=== PATIENT | female | born 1945 | race Caucasian/White ===

== ENCOUNTER → 2016-07-10 | Day surgery (SDC) | payer OTHER ==
[~2016-07-10] VITALS: Ht 157.5 cm; Wt 68.2 kg
[~2016-07-10] MED LIST: *morphine SULFATE 8 MG/ML PERIprocedure ONLY ONE; ASPI1TAB69 PO; ASPIRIN EC 81 MG TABEC PO SCH; ATROPINE SULFATE 1 MG/ML VIAL IV PUSH PRN; BACITRACIN TOP OINT 15 GM TUBE ONE; BUPIVACAINE/EPINEPHRINE 0.5% PF 30 ML VIAL INFIL ONE; CHLORHEXIDINE GLUCONATE 2 % 1 PACK (2 CLOTHS) TOPICAL PRN; CLOPIDOGREL 300 MG TAB PO ONE; DO NOT ADM ANY ANTICOAGULANT DRUGS PRN; ENALAPRILAT 1.25 MG/ML VIAL IV PUSH PRN; FAMOTIDINE 20 MG/2 ML VIAL ONE; FLUT1INH INH; HEPARIN SODIUM - IV 10,000 UNITS/10 ML VIAL ONE; HEPARIN SODIUM - SQ 10,000 UNITS/ML VIAL ONE; INSULIN HUMAN REGULAR 1,000 UNITS/10 ML VIAL SQ PRN; IOHEXOL 300 MG/ML 50 ML BTL (for RAD DIAG) OTHER ONE; KETAMINE HCL 500 MG/5 ML VIAL ONE; LABETALOL HCL 100 MG/20 ML VIAL IV PUSH PRN; LACTATED RINGER'S 1000 ML IV PRN; LIDOCAINE HCL 1% 20 ML VIAL INFIL PRN; LORazepam 2 MG/ML VIAL IV PUSH PRN; METOCLOPRAMIDE HCL 10 MG/2 ML VIAL IV PUSH PRN; METOPROLOL TARTRATE 25 MG TAB PO PRN; MIDAZOLAM HCL 2 MG/2 ML VIAL ONE; NITROPRUSSIDE INJ 50 MG in DEXTROSE 5% IN WATER INJ 250 ML IV SCH; ONDANSETRON HCL 4 MG/2 ML VIAL IV PUSH ONE; ONDANSETRON HCL 4 MG/2 ML VIAL IV PUSH PRN; PHENYLEPHRINE HCL 10 MG/ML VIAL IV ONE; POTASSIUM CHLORIDE 20 MEQ CONTROLLED RELEASE TAB PO SCH; POVIDONE IODINE 5% (ANTISEPSIS KIT) 4 APPLICATIONS EACH NARE PRN; PROPOFOL 200 MG/20 ML AMP IV ONE; PROTAMINE SULFATE 50 MG/5 ML VIAL ONE; SODIUM CHLOR 0.9% 1000 ML INJ 1,000 ML IV SCH; SODIUM CHLOR 0.9% 250 ML INJ 250 ML IV PRN; SODIUM CHLORID 0.9% 500 ML INJ 500 ML IV ONE; SODIUM CHLORID 0.9% 500 ML IV PRN; SODIUM CHLORIDE 0.9% FLUSH 10 ML FLUSH IV FLUSH PRN; SODIUM CHLORIDE 0.9% INJ 100 ML ONE; ceFAZolin 1,000 MG/NS 100 ML IV SCH; ceFAZolin INJ 1,000 MG VIAL ONE; cloNIDine HCL 0.1 MG TAB PO PRN; fentaNYL CITRATE 250 MCG/5 ML AMP ONE
[2016-07-10 09:00] VITALS: BP 142/88; PULSE 86; RESP 20; TEMP 97.7; O2SAT 98
[2016-07-10 09:28] LABS: AUTOMATED NEUTROPHIL # 3.5 TH/MM3 (1.8-7.7); BASOPHIL # 0.1 TH/MM3 (0-0.2); BASOPHIL % 1.1 % (0.0-2.0); EOSINOPHIL % 0.8 % (0.0-4.0); HEMATOCRIT 41.2 % (35.0-46.0); HEMO FLAGS DIFF FINAL; LYMPH % 30.6 % (9.0-44.0); LYMPHOCYTE # 1.8 TH/MM3 (1.0-4.8); MEAN CELL VOLUME 92.4 FL (80.0-100.0); MEAN CORPUSCULAR HEMOGLOBIN 31.8 PG (27.0-34.0); MEAN CORPUSCULAR HGB CONC 34.5 % (32.0-36.0); MONO % 7.5 % (0.0-8.0); PLATELET COUNT 335 TH/MM3 (150-450); RED BLOOD COUNT 4.46 MIL/MM3 (4.00-5.30); RED CELL DISTRIBUTION WIDTH 13.5 % (11.6-17.2); WHITE BLOOD COUNT 5.8 TH/MM3 (4.0-11.0)
[2016-07-10 09:39] LABS: INTERNATIONAL NORMALIZED RATIO 0.9 RATIO; PROTHROMBIN TIME - PATIENT 10.2 SEC (9.8-11.6)
[2016-07-10 09:42] LABS: BICARBONATE 25.5 MEQ/L (21.0-32.0)
--- NOTE | 2016-07-10 11:30 | EKG ---
Date Performed: 07/10/2016 Time Performed: 08:39:08 PTAGE: 71 years EKG: Sinus rhythm LEFT ANTERIOR FASCICULAR BLOCK MODERATE ST DEPRESSION ABNORMAL ECG PREVIOUS TRACING : 02/02/1997 16.03 DOCTOR: Derrell Powers Interpretating Date/Time 07/10/2016 11:29:38
[2016-07-10 15:00] VITALS: BP 131/69; PULSE 76; RESP 16; TEMP 97.8; O2SAT 96
--- NOTE | 2016-07-11 07:04 | MP ---
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 PROCEDURE Left external iliac percutaneous balloon angioplasty and stent placement. SURGEON Vlad Vilchis MD ASSISTANT MANAGER/EMBALMER VLAD Cope ANESTHESIA Local MAC. DESCRIPTION OF THE OPERATIVE PROCEDURE With the patient in the supine position and under IV sedation, the lower abdomen, both groins and thighs were prepped with Betadine and draped in a sterile fashion. One gram of Ancef was administered intravenously and following a protocol time-out, the skin and subcutaneous tissue surrounding the proposed left common femoral access site preemptively infiltrated with 0.5% Marcaine with epinephrine. Utilizing ultrasound guidance, an 18-gauge needle was inserted into the left mid-common femoral lumen. A J-wire was navigated under fluoroscopic guidance into the left iliac artery followed by deployment of a 5-[place]mani hemostatic sheath. Retrograde, diluted contrast injected through the sheath side-arm in conjunction with digital C-arm fluoroscopic imaging confirmed a focal, high-grade stenosis within the mid-left external iliac artery. The distal aorta, both common and internal iliac arteries were widely patent. The right external iliac artery was also widely patent. The patient was systemically heparinized with 5000 units. The 5-[place]mani sheath was exchanged for a 6-[place] Brite-Tip sheath. Utilizing roadmapping guidance, the focal external iliac stenosis was balloon angioplastied with a 4 x 40-mm balloon followed by deployment of a 6 x 30-mm balloon expandable stent. Completion angiogram revealed no residual stenosis and unrestricted flow into the left common femoral artery. Selective angiography of the left lower extremity confirmed a widely patent left common femoral, profunda, SFA, popliteal with two-vessel runoff to the left foot. There were no operative complications. At the conclusion of the procedure the left posterior tibial pulse was easily palpable/robust. The patient returned to Recovery in stable condition having tolerated the procedure well. MD RUTH Granger/JENNIFER /5:32 PM /6:51 AM
== END | disposition home or self-care (01) ==
LOC: HSDC 08:10
PROVIDERS: ATTEND Surgery Vascular Surgery
DX: I70.212 Atherosclerosis of native arteries of extremities with intermittent claudication, left leg (principal); R94.31 Abnormal electrocardiogram [ECG] [EKG]
CPT/HCPCS: 00880; 37221; 75710; 76937; 80048; 85025; 85347; 85610; 85730; 86850; 86900; 86901; 93005; C1725; C1769; C1876; J0690; J1644; J2250; J2270; J2370; J2405; J2720; J3010; J7030; J7040; J7120; Q9967; J1642